=== PATIENT | female | born 1955 | race Caucasian/White ===

== ENCOUNTER 2024-10-29 00:28 | Emergency (ER) | payer MEDICARE, MEDICAID ==
[~2024-10-29] VITALS: Ht 170.2 cm; Wt 113.0 kg
[2024-10-29 00:33] VITALS: O2SAT 98
[2024-10-29 02:43] VITALS: BP 162/74; PULSE 75; RESP 17; TEMP 36.9; O2SAT 98
[2024-10-29] MEDS: FUROSEMIDE 40MG/4ML VIAL IVP ONE (03:24)
[2024-10-29] MEDS: METFORMIN HCL 500MG TABLET PO ONE (03:25)
[2024-10-29] MEDS: GABAPENTIN 100MG CAPSULE PO SCH (03:25)
[2024-10-29] MEDS ORDERED: METF-414 MT (03:56)
[2024-10-29] MEDS ORDERED: GABA-529 MT (03:56)
[2024-10-29] MEDS ORDERED: FURO-151 MT (03:56)
== END 2024-10-29 05:21 | disposition home or self-care (01) ==
LOC: ER 00:28
DX: G89.29 Other chronic pain (principal); M79.605 Pain in left leg; M79.604 Pain in right leg; E11.9 Type 2 diabetes mellitus without complications; I10 Essential (primary) hypertension; Z76.0 Encounter for issue of repeat prescription; Z79.899 Other long term (current) drug therapy
CPT/HCPCS: 99284; 96374; J1938

== ENCOUNTER 2025-03-19 11:20 | Inpatient (IN) | payer MEDICARE, MEDICAID ==
[~2025-03-19] VITALS: Ht 165.1 cm; Wt 132.9 kg
[2025-03-19] VITALS (7 sets, daily range): BP systolic 167; BP diastolic 86; PULSE 57–105; RESP 16–20; TEMP 36.3–36.3624; O2SAT 95–97
[~2025-03-19 11:20] MED LIST: FURO-151 MT; GABA-529 MT; INSULIN GLARGINE 100 UNITS/ML SUBCUT SCH; METF-414 MT
[2025-03-19] MEDS: ALBUTEROL (0.083%) 2.5MG/3ML NEB HHN SCH (11:41)
[2025-03-19] MEDS: IPRATROPIUM BROMIDE (0.02%) 0.5MG/2.5ML NEB HHN SCH (11:41)
[2025-03-19 11:57] LABS: BASOPHILS % 0.9 % (0.0-2.0); EOSINOPHILS % 1.7 % (0.0-5.0); HEMATOCRIT. 38.4 % (36.0-48.0); HEMOGLOBIN. 12.5 g/dL (12.0-16.0); LYMPHOCYTES % 15.7 % (20.0-50.0); MEAN PLATELET VOLUME 9.8 fl (7.4-10.4); MONOCYTES % 7.8 % (2.0-8.0); NEUTROPHILS % 73.9 % (40.0-76.0); PLATELET 202 x1000/uL (130-400); RED BLOOD CELL COUNT 4.55 mill/uL (4.2-5.4); RED CELL DISTRIBUTION WIDTH 14.4 % (11.6-14.6)
[2025-03-19] MEDS: METHYLPREDNISOLONE SOD SUCC 125MG/2ML (ACT-O-VIAL) IV ONE (11:59)
[2025-03-19 12:12] LABS: CREATININE 0.9 mg/dL (0.6-1.0); UREA NITROGEN BLOOD 10 mg/dL (9-23)
[2025-03-19 12:13] LABS: TROPONIN I HIGH SENSITIVITY 15 ng/L (3.0-34)
[2025-03-19] MEDS ORDERED: ONDANSETRON HCL 4MG/2ML INJ IV PRN (15:15)
[2025-03-19] MEDS ORDERED: ENOXAPARIN 150MG/ML SYR SUBCUT SCH ×2 (15:15→23:30)
[2025-03-19] MEDS ORDERED: ACETAMINOPHEN 325MG TABLET PO PRN (15:15)
[2025-03-19] MEDS ORDERED: DEXTROSE 50% WATER 50ML SYRINGE IV PRN ×2 (15:15→23:15)
[2025-03-19] MEDS: IPRATROPIUM/ALBUTEROL 0.5-3(2.5)MG/3ML NEB HHN SCH (15:25)
[2025-03-19 15:46] LABS: BG BASE EXCESS 2.9 mmol/L (-2.0-3.0); BG CARBOXYHEMOGLOBIN 1.4 % (0.5-1.5); BG DEOXYHEMOGLOBIN 10.2 % (0.0-5.0); BG FRACTION INSPIRED OXYGEN 21; BG HCO3 ACT 27.1 mmol/L (21.0-28.0); BG METHEMOGLOBIN 0.1 % (0.5-1.5); BG OXYGEN SATURATION 89.6 % (94.0-98.0); BG OXYHEMOGLOBIN 88.3 % (94.0-98.0); BG PCO2 40.1 mmHg (32.0-45.0); BG PH 7.448 (7.350-7.450); BG PO2 53.4 mmHg (83.0-108.0); BG SAMPLE SITE RIGHT RADIAL; BG TOTAL HEMOGLOBIN 14.1 g/dL (12.0-16.0); BG VENT MODE ROOM AIR
[2025-03-19] MEDS: FAMOTIDINE 20MG/2ML VIAL IV SCH (16:15)
[2025-03-19] MEDS: BENZONATATE 100MG CAPSULE PO SCH (16:15)
[2025-03-19] MEDS: METHYLPREDNISOLONE SOD SUCC 125MG/2ML (ACT-O-VIAL) IV SCH (16:16)
[2025-03-19] MEDS: FUROSEMIDE 40MG/4ML VIAL IV SCH (16:16)
[2025-03-19] MEDS: INSULIN LISPRO 100 UNITS/ML SUBCUT SCH ×4 (16:17→21:33)
[2025-03-19] MEDS ORDERED: CEFTRIAXONE 1,000 MG in DEXT 5% WATER 100 ML IV SCH (16:30)
[2025-03-19] MEDS: BLOOD SUGAR DIAGNOSTIC STRIP TEST SCH ×2 (17:16→23:46)
[2025-03-19] MEDS ORDERED: INSULIN LISPRO 100 UNITS/ML SUBCUT SCH ×2 (17:40→18:10)
[2025-03-19] MEDS: INSULIN REGULAR (HUMULIN R) 1000UNITS/10ML VIAL IV SCH (17:45)
[2025-03-19] MEDS: AZITHROMYCIN 500 MG TABLET PO SCH (18:18)
[2025-03-19] MEDS: CEFTRIAXONE 1GM/50ML 50ML IV SCH (18:36)
[2025-03-19] MEDS: ENOXAPARIN 150MG/ML SYR SUBCUT SCH (18:38)
[2025-03-19] MEDS: GUAIFENESIN 600MG ER TABLET PO SCH (20:53)
[2025-03-19] MEDS ORDERED: BLOOD SUGAR DIAGNOSTIC STRIP TEST PRN (23:15)
[2025-03-19] MEDS ORDERED: POTASSIUM CHLORIDE 40 MEQ in SODIUM CHLORIDE 0.9% 230 ML IV PRN (23:15)
[2025-03-19] MEDS ORDERED: KCL 20MEQ/100ML PREMIX 100 ML IV PRN (23:15)
[2025-03-19] MEDS ORDERED: SODIUM PHOSPHATE 15 MMOL in SODIUM CHLORIDE 0.9% 245 ML IV PRN (23:15)
[2025-03-19] MEDS ORDERED: MAGNESIUM 2 G PREMIX 50 ML IV PRN (23:15)
[2025-03-19 23:39] LABS: BG BASE EXCESS 1.8 mmol/L (-2.0-3.0); BG CARBOXYHEMOGLOBIN 0.9 % (0.5-1.5); BG DEOXYHEMOGLOBIN 6.5 % (0.0-5.0); BG FRACTION INSPIRED OXYGEN 21; BG HCO3 ACT 25.9 mmol/L (21.0-28.0); BG METHEMOGLOBIN 0.3 % (0.5-1.5); BG OXYGEN SATURATION 93.4 % (94.0-98.0); BG OXYHEMOGLOBIN 92.3 % (94.0-98.0); BG PCO2 39.1 mmHg (32.0-45.0); BG PH 7.439 (7.350-7.450); BG PO2 63.4 mmHg (83.0-108.0); BG SAMPLE SITE RIGHT RADIAL; BG TOTAL HEMOGLOBIN 14.2 g/dL (12.0-16.0); BG VENT MODE ROOM AIR
[2025-03-19] MEDS: INSULIN REGULAR (HUMULIN R) 1000UNITS/10ML VIAL IV NR (23:48)
[2025-03-20] VITALS (8 sets, daily range): BP systolic 137–164; BP diastolic 68–88; PULSE 86–101; RESP 16–20; TEMP 36.3–37.2; O2SAT 95–98
[2025-03-20 07:07] LABS: HEMATOCRIT. 39.3 % (36.0-48.0); HEMOGLOBIN. 13.0 g/dL (12.0-16.0); MEAN PLATELET VOLUME 10.3 fl (7.4-10.4); PLATELET 210 x1000/uL (130-400); RED BLOOD CELL COUNT 4.65 mill/uL (4.2-5.4); RED CELL DISTRIBUTION WIDTH 14.2 % (11.6-14.6)
[2025-03-20] MEDS ORDERED: INSULIN GLARGINE 100 UNITS/ML SUBCUT SCH ×4 (07:15→10:00)
[2025-03-20 07:21] LABS: INR 1.0
[2025-03-20 07:51] LABS: CREATININE 1.0 mg/dL (0.6-1.0); TRIGLYCERIDE 92.0 mg/dL (0-150); UREA NITROGEN BLOOD 21.0 mg/dL (9-23)
[2025-03-20 07:52] LABS: LDL CHOLESTEROL 137.0 mg/dL (5-100)
[2025-03-20 07:53] LABS: TROPONIN I HIGH SENSITIVITY 8 ng/L (3.0-34)
[2025-03-20 07:54] LABS: CREATINE KINASE MB FRACTION 2.6 ng/mL (0.5-3.6)
[2025-03-20 07:58] LABS: T4 FREE 1.19 ng/dL (0.89-1.76)
[2025-03-20] MEDS: ENOXAPARIN 150MG/ML SYR SUBCUT SCH (09:00)
[2025-03-20] MEDS ORDERED: INSU100I28 SQ (09:22)
[2025-03-20] MEDS ORDERED: HYDR25TA78 MT (09:23)
[2025-03-20] MEDS ORDERED: SENN-362 MT (09:23)
[2025-03-20] MEDS ORDERED: APIX5TAB PO (09:24)
[2025-03-20] MEDS ORDERED: DOCU-138 PO (09:25)
[2025-03-20] MEDS ORDERED: PIOG45TA64 PO (09:26)
[2025-03-20] MEDS ORDERED: CHOL400D7 PO (09:26)
[2025-03-20] MEDS ORDERED: POLY119P2 MT (09:28)
[2025-03-20] MEDS ORDERED: ACET-2708 PO (09:29)
[2025-03-20] MEDS ORDERED: MOM MT (09:30)
[2025-03-20] MEDS ORDERED: TOPUD MT (09:30)
[2025-03-20] MEDS ORDERED: BISA10SU62 RC (09:31)
[2025-03-20] MEDS: INSULIN GLARGINE 100 UNITS/ML SUBCUT SCH (10:10)
[2025-03-20] MEDS: INSULIN LISPRO 100 UNITS/ML SUBCUT SCH (11:58)
[2025-03-20] MEDS: INSULIN REGULAR (HUMULIN R) 1000UNITS/10ML VIAL IV NR ×2 (12:00→23:49)
[2025-03-20 12:55] LABS: PHOSPHORUS 3.6 mg/dL (2.5-4.9)
[2025-03-20 13:26] LABS: BILIRUBIN DIRECT < 0.1 mg/dL (<=3.0); PHOSPHORUS 3.8 mg/dL (2.5-4.9)
[2025-03-20] MEDS: BUDESONIDE 0.5MG/2ML NEB HHN SCH (15:00)
[2025-03-20 16:46] LABS: BAND% 1.0 % (1.0-6.0); LYMPHOCYTES % MANUAL 3.0 % (20.0-60.0); MONOCYTES % MANUAL 3.0 % (2.0-8.0); NEUTROPHILS % MANUAL 93.0 % (45.0-75.0); PLATELET ESTIMATE NORMAL
[2025-03-20 17:51] LABS: PHOSPHORUS 3.8 mg/dL (2.5-4.9)
[2025-03-20] MEDS: MICONAZOLE NITRATE 2% OINT 71GM TOP SCH (18:34)
[2025-03-20] MEDS: LOSARTAN 50 MG TABLET PO SCH (18:35)
[2025-03-20] MEDS: ACETAMINOPHEN 325MG TABLET PO PRN (18:35)
[2025-03-20] MEDS: DIPHENHYDRAMINE 25MG CAPSULE PO PRN (18:35)
[2025-03-20] MEDS: ATORVASTATIN CALCIUM 20MG TABLET PO SCH (21:47)
[2025-03-21] VITALS (10 sets, daily range): BP systolic 115–128; BP diastolic 52–64; PULSE 79–96; RESP 18–22; TEMP 36.2–37.2; O2SAT 94–100
[2025-03-21] MEDS: GABAPENTIN 100MG CAPSULE PO SCH (14:30)
[2025-03-21] MEDS: VANCOMYCIN 2GM PMX (XELLIA) 400 ML IV SCH (14:31)
[2025-03-22] VITALS (10 sets, daily range): BP systolic 106–141; BP diastolic 47–77; PULSE 72–90; RESP 16–21; TEMP 36.3–36.9; O2SAT 91–98
[2025-03-22 08:06] LABS: BASOPHILS % 0.6 % (0.0-2.0); EOSINOPHILS % 1.3 % (0.0-5.0); HEMATOCRIT. 38.9 % (36.0-48.0); HEMOGLOBIN. 12.6 g/dL (12.0-16.0); LYMPHOCYTES % 21.9 % (20.0-50.0); MEAN PLATELET VOLUME 10.2 fl (7.4-10.4); MONOCYTES % 8.1 % (2.0-8.0); NEUTROPHILS % 68.1 % (40.0-76.0); PLATELET 218 x1000/uL (130-400); RED BLOOD CELL COUNT 4.60 mill/uL (4.2-5.4); RED CELL DISTRIBUTION WIDTH 14.4 % (11.6-14.6)
[2025-03-22 08:22] LABS: CREATININE 0.7 mg/dL (0.6-1.0); UREA NITROGEN BLOOD 15 mg/dL (9-23)
[2025-03-22] MEDS ORDERED: VANCOMYCIN 1.25GM/250ML IV SCH (15:00)
[2025-03-22] MEDS: INSULIN LISPRO 100 UNITS/ML SUBCUT SCH ×2 (17:35→17:36)
[2025-03-22] MEDS ORDERED: ENOXAPARIN 30MG/0.3ML SYR SUBCUT SCH (21:00)
[2025-03-22] MEDS: LIDOCAINE 5% PATCH TOP SCH (21:34)
[2025-03-22] MEDS: APIXABAN 5 MG TABLET PO SCH (21:35)
[2025-03-22] MEDS: INSULIN GLARGINE 100 UNITS/ML SUBCUT SCH (21:37)
[2025-03-23] VITALS (11 sets, daily range): BP systolic 132–145; BP diastolic 52–76; PULSE 76–94; RESP 16–20; TEMP 36.6–37.2; O2SAT 91–99
[2025-03-23] MEDS: GUAIFENESIN 200MG/10ML SUGAR FREE UDC PO PRN (01:12)
[2025-03-23] MEDS: IPRATROPIUM/ALBUTEROL 0.5-3(2.5)MG/3ML NEB HHN PRN (01:15)
[2025-03-23] MEDS: INSULIN GLARGINE 100 UNITS/ML SUBCUT SCH (09:20)
[2025-03-23] MEDS ORDERED: LOSA50TA41 MT (13:46)
[2025-03-23] MEDS ORDERED: GUAI-741 MT (13:46)
[2025-03-23] MEDS ORDERED: INSU100I28 SQ (13:46)
[2025-03-23] MEDS ORDERED: ATOR20TA65 MT (13:46)
[2025-03-23] MEDS ORDERED: METF-416 MT (13:46)
[2025-03-24] VITALS (9 sets, daily range): BP systolic 124–137; BP diastolic 51–67; PULSE 75–89; RESP 18–20; TEMP 36.6–37.1; O2SAT 94–97
[2025-03-25] VITALS (8 sets, daily range): BP systolic 120–137; BP diastolic 60–71; PULSE 71–92; RESP 18–20; TEMP 36.2–37; O2SAT 91–98
[2025-03-26] VITALS (7 sets, daily range): BP systolic 110–119; BP diastolic 49–74; PULSE 68–87; RESP 17–18; TEMP 36.4–36.6; O2SAT 91–100
[2025-03-26] MEDS: IPRATROPIUM/ALBUTEROL 0.5-3(2.5)MG/3ML NEB HHN SCH (00:49)
[2025-03-26] MEDS ORDERED: INSU100I28 SQ ×2 (05:57→12:13)
[2025-03-26] MEDS ORDERED: INSU100V43 SQ ×2 (05:57→12:13)
[2025-03-26] MEDS: INSULIN REGULAR (HUMULIN R) 1000UNITS/10ML VIAL IV ONE (09:00)
[2025-03-26] MEDS: INSULIN LISPRO 100 UNITS/ML SUBCUT SCH ×2 (10:32→19:13)
[2025-03-26] MEDS: INSULIN GLARGINE 100 UNITS/ML SUBCUT SCH ×2 (10:34→21:13)
[2025-03-26] MEDS: CEPHALEXIN 250MG CAPSULE PO SCH (10:43)
[2025-03-26] MEDS ORDERED: INSULIN GLARGINE 100 UNITS/ML SUBCUT SCH (12:30)
[2025-03-27 02:24] VITALS: PULSE 75; RESP 18; O2SAT 92
[2025-03-27 04:00] VITALS: BP 118/60; PULSE 79; RESP 18; TEMP 36.5; O2SAT 92
[2025-03-27 08:00] VITALS: BP 116/61; PULSE 76; RESP 17; TEMP 36.4; O2SAT 97
[2025-03-27 08:42] VITALS: PULSE 75; RESP 18
[2025-03-27 09:52] VITALS: BP 116/61; PULSE 76; RESP 18; TEMP 97.6
== END 2025-03-27 10:41 | DRG 189 ==
LOC: ER 11:20 → 7WST 12:33 → EDBEDREQ 12:35 → EDBEDREQTM 12:35 → 7EST 03-25 12:51
PROVIDERS: ADMIT Internal Medicine; ATTEND Internal Medicine
DX: J96.01 Acute respiratory failure with hypoxia (principal); I50.42 Chronic combined systolic (congestive) and diastolic (congestive) heart failure; Z99.81 Dependence on supplemental oxygen; F25.9 Schizoaffective disorder, unspecified; L03.115 Cellulitis of right lower limb; L03.116 Cellulitis of left lower limb; Z68.42 Body mass index [BMI] 45.0-49.9, adult; J44.1 Chronic obstructive pulmonary disease with (acute) exacerbation; E11.40 Type 2 diabetes mellitus with diabetic neuropathy, unspecified; I11.0 Hypertensive heart disease with heart failure; F31.9 Bipolar disorder, unspecified; E66.01 Morbid (severe) obesity due to excess calories; Z86.718 Personal history of other venous thrombosis and embolism; Z88.0 Allergy status to penicillin; I87.2 Venous insufficiency (chronic) (peripheral); L68.0 Hirsutism; L85.3 Xerosis cutis; Z79.4 Long term (current) use of insulin; Z79.84 Long term (current) use of oral hypoglycemic drugs; Z79.899 Other long term (current) drug therapy; E11.65 Type 2 diabetes mellitus with hyperglycemia
CPT/HCPCS: 36415; 36600; 71045; 80048; 80051; 80061; 82010; 82248; 82375; 82550; 82553; 82805; 82962; 83036; 83735; 83880; 83930; 84100; 84145; 84439; 84443; 84481; 84484; 85025; 93005; 93970; 94070; 94640; 94664; 94760; 97163; 97166; 97530; 98960; 99291; A4606; J0696; J1308; J1650; J1815; J1938; J2919; J3373; J7626; Q0163